=== PATIENT | male | born 1955 | race Caucasian/White ===

== ENCOUNTER 2018-05-04 15:13 | Emergency (ER) | payer MEDICARE ==
[~2018-05-04] VITALS: Ht 167.6 cm; Wt 53.6 kg
[2018-05-04 15:33] VITALS: Ht 167.6 cm; Wt 53.6 kg
[2018-05-04] MEDS ORDERED: CYMBALTA60 MG PO (15:38)
[2018-05-04] MEDS ORDERED: BUSPIRONE HCL30 MG PO (15:38)
[2018-05-04] MEDS ORDERED: ZESTRIL10 MG PO (15:38)
[2018-05-04] MEDS ORDERED: TRAZODONE HCL50 MG PO (15:39)
[2018-05-04] MEDS ORDERED: HYDROCODON-ACE1 EAC7 PO ×2 (15:39→22:28)
[2018-05-04] MEDS ORDERED: PROCARDIA10 MG PO (15:40)
[2018-05-04] MEDS ORDERED: PROAIR HFA8.5 GM (15:41)
[2018-05-04 22:50] VITALS: BP 123/85
== END 2018-05-04 22:51 | disposition home or self-care (01) ==
LOC: D.ER 15:13
DX: S22.31XA Fracture of one rib, right side, initial encounter for closed fracture (principal); W19.XXXA Unspecified fall, initial encounter; Y93.89 Activity, other specified; Y92.019 Unspecified place in single-family (private) house as the place of occurrence of the external cause; I10 Essential (primary) hypertension; J44.9 Chronic obstructive pulmonary disease, unspecified; C45.9 Mesothelioma, unspecified; F17.200 Nicotine dependence, unspecified, uncomplicated

== ENCOUNTER 2018-05-25 14:56 | Emergency (ER) | payer MEDICARE ==
[~2018-05-25] VITALS: Ht 167.6 cm; Wt 52.3 kg
[~2018-05-25 14:56] MED LIST: BUSPIRONE HCL30 MG PO; CYMBALTA60 MG PO; HYDROCODON-ACE1 EAC7 PO; PROAIR HFA8.5 GM; PROCARDIA10 MG PO; TRAZODONE HCL50 MG PO; ZESTRIL10 MG PO
[2018-05-25 14:57] VITALS: Ht 167.6 cm; Wt 52.3 kg
[2018-05-25 15:19] LABS: BASOPHILS 1.1 % (0-2); EOSINOPHILS 1.6 % (0-7); HEMATOCRIT 34.5 % (42.0-54.0); HEMOGLOBIN 11.8 g/dL (13.5-17.5); IMMATURE GRANULOCYTES 0.2 % (0-5); LYMPHOCYTES 22.8 % (15-50); MCH 28.1 pg (26.0-34.0); MCHC 34.2 g/dL (31.0-37.0); MCV 82.1 fL (80.0-100.0); MEAN PLATELET VOLUME 10.1 fL (7.4-10.4); MONOCYTES 14.5 % (2-11); NEUTROPHILS 59.8 % (40-80); PLATELET COUNT 253 10x3/uL (130-400); RDW 15.6 % (11.5-14.5); WBC 5.5 10x3/uL (4.8-10.8)
[2018-05-25 15:37] LABS: ALKALINE PHOSPHATASE 97 U/L (46-116); ALT (SGPT) 20 U/L (10-68); BILIRUBIN - TOTAL 0.28 mg/dL (0.2-1.3); CALC OSMOLALITY 285 mosm/kg (275-300); CALCIUM 8.6 mg/dL (8.5-10.1); CARBON DIOXIDE 29.1 mmol/L (21.0-32.0); CHLORIDE - SERUM 108 mmol/L (98-107); CREATININE - SERUM 0.7 mg/dL (0.6-1.3); GLUCOSE 92 mg/dL (74-106); POTASSIUM - SERUM 3.4 mmol/L (3.5-5.1); PROTEIN - SERUM 6.5 g/dL (6.4-8.2); SODIUM 144 mmol/L (136-145); UREA NITROGEN 9 mg/dL (7-18); eGFR NON AFRICAN AMERICAN > 90 mL/min (90-120)
[2018-05-25 15:52] LABS: CREATINE KINASE 43 UL (21-232)
[2018-05-25 15:56] LABS: TROPONIN-I < 0.017 ng/mL (0.000-0.060)
[2018-05-25 19:33] LABS: APPEARANCE CLEAR (CLEAR); BILIRUBIN NEGATIVE (NEGATIVE); COLOR YELLOW (YELLOW); GLUCOSE NEGATIVE (NEGATIVE); KETONE NEGATIVE (NEGATIVE); NITRITE NEGATIVE (NEGATIVE); PROTEIN NEGATIVE (NEGATIVE); SPECIFIC GRAVITY 1.015 (1.005-1.020); UROBILINOGEN NORMAL (NORMAL)
[2018-05-25] MEDS ORDERED: NORCO 7.5/325 T1 TA1 PO (20:35)
[2018-05-25 20:42] VITALS: BP 182/97
== END 2018-05-25 20:42 | disposition home or self-care (01) ==
LOC: D.ER 14:56
PROVIDERS: Family Medicine
DX: R07.9 Chest pain, unspecified (principal); J44.9 Chronic obstructive pulmonary disease, unspecified; M25.50 Pain in unspecified joint; C45.9 Mesothelioma, unspecified; I10 Essential (primary) hypertension